=== PATIENT | female | born 2000 | race Two or more races ===

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

== ENCOUNTER 2018-05-19 16:10 | Emergency (ER) | payer BC, MEDICAID, OTHER ==
[~2018-05-19] VITALS: Ht 160 cm; Wt 38.6 kg
[2018-05-19] MEDS ORDERED: IBUPROFEN 600 MG TABLET PO ONE ×2 (17:00)
[2018-05-19 17:15] LABS: BASOPHILS % (AUTO) 0.4 % (0.0-2.0); EOSINOPHILS % (AUTO) 5.6 % (0.0-6.0); HEMATOCRIT 40 % (33-45); HEMOGLOBIN 13.5 g/dL (11.5-14.8); LYMPHOCYTES # (AUTO) 1.6 /CMM (0.8-4.8); LYMPHOCYTES % (AUTO) 19.6 % (20.0-44.0); MEAN CORPUSCULAR HGB CONC 34 g/dl (31.0-36.0); MEAN CORPUSCULAR VOLUME 83 fL (82-100); MONOCYTES # (AUTO) 0.8 /CMM (0.1-1.30); MONOCYTES % (AUTO) 9.1 % (2.0-12.0); NEUTROPHILS # (AUTO) 5.5 /CMM (1.8-8.9); NEUTROPHILS % (AUTO) 65.3 % (43.0-81.0); PLATELET COUNT (AUTO) 256 /CMM (150-450); RDW COEFFICIENT OF VARIATION 15.6 (11.5-15.0); RED BLOOD CELL COUNT(AUTO) 4.87 MIL/uL (4.0-5.2); WHITE BLOOD COUNT (AUTO) 8.4 K/uL (4.3-11.0)
[2018-05-19 17:22] LABS: CALCIUM, SERUM 9.5 mg/dL (8.5-10.1); CARBON DIOXIDE 30 mmol/L (21-32); CHLORIDE 104 mmol/L (98-107); CREATININE 0.6 mg/dL (0.6-1.3); GLUCOSE 87 mg/dL (74-106); SODIUM SERUM 139 mmol/L (136-145); UREA NITROGEN, BLOOD 8 mg/dL (7-18)
[2018-05-19 17:29] LABS: INR 1.13 (0.85-1.15)
[2018-05-19 17:30] LABS: TROPONIN I < 0.017 ng/mL (0.00-0.056)
[2018-05-19] MEDS ORDERED: IV NS 0.9% 1,000 ML BAG IV ONE (17:30)
[2018-05-19 18:23] VITALS: BP 113/72
== END 2018-05-19 18:27 | disposition home or self-care (01) ==
LOC: ER 16:14
DX: R07.89 Other chest pain (principal); J06.9 Acute upper respiratory infection, unspecified; F41.9 Anxiety disorder, unspecified; R00.0 Tachycardia, unspecified
CPT/HCPCS: 36415; 71045; 80048; 84484; 85025; 85730; 93005; 99285; A4606; J7030; Z7610

== ENCOUNTER 2018-07-09 19:06 | Emergency (ER) | payer BC ==
--- NOTE | 2018-07-09 19:10 | NUR ---
CALLED TO TRIAGE, NO RESPONSE
--- NOTE | 2018-07-09 19:32 | NUR ---
CALLED FOR TRIAGE; NO ANSWER
--- NOTE | 2018-07-09 19:46 | NUR ---
CALLDEREKD AGAIN; NOT IN LOBBY
== END 2018-07-09 19:47 | disposition left against medical advice (07) ==
LOC: ER 19:07
DX: M79.643 Pain in unspecified hand (principal); Z53.21 Procedure and treatment not carried out due to patient leaving prior to being seen by health care provider